=== PATIENT | female | born 1975 | race Caucasian/White ===

== ENCOUNTER 2024-09-11 12:08 | Emergency (ER) | payer OTHER, SELFPAY ==
[2024-09-11 12:12] VITALS: BP 150/96; PULSE 93; TEMP 37.1; BMI 55.8
[2024-09-11 12:18] VITALS: O2SAT 92
--- NOTE | 2024-09-11 12:18 | XR_ITS ---
[address] [address] Patient Name: SCARLETT CHAPMAN MRN: [id number] date: 1975 Sex: F Assigned Patient Location: ER Current Patient Location: ER Accession/Order Number: [id number] Exam Date: 09/11/2024 12:39 Report Date: 09/11/2024 12:40 At the request of: NINO VICTORIA MD Procedure: XR chest 1V Plain film chest Single view HISTORY: Shortness of breath COMPARISON: None FINDINGS: SUPPORT DEVICES: None POSTSURGICAL CHANGES: None HEART: Within normal limits PULMONARY MARYAN: Within normal limits MEDIASTINUM: Unremarkable LUNGS AND PLEURA: No acute lung process, pleural effusion or pneumothorax identified. BONY STRUCTURES: Intact ADDITIONAL FINDINGS None XR/XR chest 1V IMPRESSION: No acute process. Impression dictated by: Artur Orellana M.D. 09/11/2024 12:40 PM Dictation Location: [place] [address] Electronically authenticated by: [id number] Y Date: 09/11/2024 12:40
--- OUTSIDE RECORDS SUMMARY | 2024-09-11 12:18 | XMS_ITS | Encounter Summary ---
Author Organization [employer] Address [id number] [address] [place] [address] Care Team Providers Care Steel Pourer Helper Name Role Phone Samira Woods MD Primary Care Provider [phone] Encounter Details Date Type Department Care Team (Late st Contact Info) Description 03/13/2022 Orders Only [facility] [address] [place] [address] [place] [phone] Samira Woods MD [address], [place] [address] [place], [place] [phone] Type 2 diabetes mellitus with other specified complication, unspecified whether mcc insulin use ([facility]) (Primary Dx) Social History Tobacco Use Types Packs/Day Years Used Date Smoking Tobacco: Former Vaping/E-cigarettes Smokeless Tobacco: Never Alcohol Use Standard Drinks/Week Comments Yes 0 (1 standard drink = 0.6 oz pur e alcohol) occas Childcare Answer Date Recorded Childcare Unknown 04/14/2020 Employment Answer Date Recorded Employment Unknown 04/14/2020 Purpose - Life Answer Date Recorded Purpose and direction in life Unknown Comments No Sex and Gender Information Value Date Recorded Sex Assigned at Female 03/20/2022 11:35 AM EST Legal Sex Female 1:18 PM EST Gender Identity Female 03/20/2022 11:35 AM EST Sexual Orientation Straight 03/20/2022 11 :35 AM EST COVID-19 Exposure Response Date Recorded In the last month, have you been in contact with someone who was confirmed or suspected to have Coronavirus / COVID-19? No / Unsure 03/14/2022 8:44 AM EST documented as of this encounter Plan of Treatment Upcoming Encounters Date Type Department Care Team (Late st Contact Info) Description 01/03/2025 2:00 PM EDT Office Visit [facility] [address] [place] [phone] Ina High MD [address] [facility] [address] [place] [address] 06/20/2025 2:30 PM EDT Office Visit [facility] [address] [facility] [place] [phone] Samira Woods MD [address] [facility] [address] [place], [place] [phone] documented as of this encounter Visit Diagnoses Diagnosis Type 2 diabetes mellitus with other specified complication, 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
--- OUTSIDE RECORDS SUMMARY | 2024-09-11 12:18 | XMS_ITS | Clinical Summary ---
Author Organization [employer] tem Address [id number] [address] [place] [address] Care Team Providers Care Distance Education Coordinator Name Role Phone Samira Woods MD Primary Care Provider [phone] Allergies Active Allergy Reactions Criticality Noted Date Comments Prochlorperazine Other (See Comments) 5 Medications blood sugar diagnostic stripIndicatio ns:Depression, unspecified depression type,Type 2 diabetes mellitus with other specified complication, unspecified whether skilled nursing insulin use ([facility]) 1 strip by other route as needed for high blood sugar. Check glucose once per day on waking up before meal. Max 2 per day. 30 day supply. 50 strip 5 04/02/20 23 Active empagliflozin (JARDIANCE) 25 mg tablet tabletIndicati ons:Type 2 diabetes mellitus with other specified complication, unspecified whether skilled nursing insulin use ([facility]) Take 1 tablet (25 mg total) by mouth in the morning. 90 tablet 3 08/16/19 24 Active OLANZapine (ZyPREXA) 5 mg tabletIndicati ons:Depression , unspecified depression type,Grief Take 1 tablet (5 mg total) by mouth nightly. 90 tablet 2 10/19/19 24 Active ibuprofen (MOTRIN) 800 mg tablet Take 1 tablet (800 mg total) by mouth 3 (three) times a day. 21 tablet 11/02/19 24 Active Additional Information Patient not taking.Reported on 08/24/2024 cyanocobalamin (vitamin B-12) 1000 MCG tabletIndicati ons:B12 deficiency Take 1 tablet (1,000 mcg total) by mouth in the morning. 90 tablet 2 11/30/19 24 Active Additional Information Patient not taking.Reported on 08/24/2024 atorvastatin (LIPITOR) 40 mg tabletIndicati ons:ATIF (obstructive sleep apnea) Take 1 tablet (40 mg total) by mouth in the morning. 90 tablet 3 12/02/19 24 Active escitalopram (LEXAPRO) 20 mg tabletIndicati ons:Depression , unspecified depression type,Grief Take 1 tablet (20 mg total) by mouth in the morning. 90 tablet 2 02/15/20 24 Active oxybutynin (DITROPAN) 5 mg tablet Take 2 tablets (10 mg total) by mouth in the morning. 120 tablet 2 02/29/20 24 Active famotidine (PEPCID) 20 mg tablet Take 1 tablet (20 mg total) by mouth 2 (two) times a day as needed for heartburn. 60 tablet 2 03/22/20 24 Active spironolactone (ALDACTONE) 50 mg tabletIndicati ons:Hypertensi on, unspecified type Take 1 tablet (50 mg total) by mouth in the morning. 30 tablet 2 06/15/19 25 Active SUMAtriptan (IMITREX) 50 mg tabletIndicati ons:Other migraine without status migrainosus, not intractable Take 1 tablet (50 mg total) by mouth once as needed for migraine for up to 10 doses. May repeat in 2 hours if unresolved. Do not exceed 200 mg in 24 hours. 10 tablet 06/16/19 25 Active loratadine (CLARITIN) 10 mg tabletIndicati ons:Seasonal allergies Take 1 tablet (10 mg total) by mouth in the morning. 60 tablet 3 07/18/19 25 Active potassium chloride (MICRO-K) 8 mEq CR capsuleIndicat ions:Hypertens ion, unspecified type Take 1 capsule (8 mEq total) by mouth in the morning. 90 capsule 08/02/19 25 Active albuterol (PROVENTIL HFA;VENTOLIN HFA) 90 mcg/actuation inhalerIndicat ions:Upper respiratory tract infection, unspecified type Inhale 2 puffs every 6 (six) hours as needed for wheezing. 18 g 2 08/20/19 25 Active ergocalciferol (VITAMIN D2) 1,250 mcg (50,000 unit) capsuleIndicat ions:Vitamin D deficiency Take 1 capsule (50,000 Units total) by mouth once a week for 12 doses. 12 capsule 08/25/19 25 025 Active levothyroxine (SYNTHROID, LEVOTHROID) 175 MCG tabletIndicati ons:Hypothyroi dism, unspecified type take 1 tablet by mouth every morning 90 tablet 2 08/25/19 25 Active albuterol (PROVENTIL HFA;VENTOLIN HFA) 90 mcg/actuation inhalerIndicat ions:Upper respiratory tract infection, unspecified type INHALE 2 PUFFS BY MOUTH EVERY 6 HOURS NEEDED FOR WHEEZING 18 g 2 04/27/19 25 025 Discontinued(R eorder) levothyroxine (SYNTHROID, LEVOTHROID) 150 MCG tabletIndicati ons:Hypothyroi dism, unspecified type take 1 tablet by mouth every morning 90 tablet 06/16/19 25 025 Discontinued Active Problems Problem Noted Date Diagnosed Date Viral URI 07/25/2022 Seasonal allergic rhinitis due to pollen 023 Hypothyroid Encounters Date Type Department Care Team Description 08/24/2024 10:45 AM EDT Telemedicine [facility] [address] [place] [phone] Samira Woods MD Vitamin D deficiency (Primary Dx); Hypothyroidism, unspecified type 08/24/2024 Travel 08/19/2024 Refill [facility] [address] [place] [phone] Karon Chaudhari CNA Upper respiratory tract infection, unspecified type 08/04/2024 Telephone [facility] [address] [place] [phone] Carmen Tomlin CMA 07/31/2024 Refill [facility] [address] [place] [phone] Samira Woods MD Hypertension, unspecified type 07/18/2024 1:49 PM EDT - 07/18/2024 11:59 PM EDT Hospital Encounter [facility] [place] [facility] [address] [place] [address] Other hyperlipidemia Discharge Disposition: Home 07/18/2024 Travel 07/17/2024 Refill [facility] [address] [place] [address] [place] [address] Samira Woods MD Seasonal allergies 06/24/2024 Telephone [facility] [address] [place] [address] Farzana Hi, [facility] 06/21/2024 2:00 PM EDT Office Visit [facility] [address] [place] [phone] Ina High MD Obstructive sleep apnea (Primary Dx); Class 3 severe obesity due to excess calories with serious comorbidity and body mass index (BMI) of 50.0 to 59.9 in adult ([facility]) 06/21/2024 Travel 06/17/2024 Telephone [facility] [address] [place] [address] [place] [address] Bindu Barillas APRN-CNP 06/15/2024 2:30 PM EST Office Visit [facility] [address] [place] [phone] Samira Woods MD Other hyperlipidemia (Primary Dx); Hypothyroidism, unspecified type; Other migraine without status migrainosus, not intractable; Hypertension, unspecified type; Low back pain with sciatica, sciatica laterality unspecified, unspecified back pain laterality, unspecified chronicity; Encounter for screening mammogram for malignant neoplasm of breast 06/14/2024 Travel 06/14/2024 Refill [facility] [address] [place] [address] [place] [address] Bindu Barillas APRN-CNP Hypertension, unspecified type from Last 3 Months Immunizations Immunization Administration Dates Next Due Influenza, Im Trivalent Preservative 03/09/2018 Influenza, Injectable, quadrivalent (PF) 023 Tdap 12/06/2019 Family History Medical History Relation Name Comments Asthma Daughter Nadia Sports related Diabetes Maternal Grandfather Nova Camejo Hypertension Maternal Grandfather Nova Camejo Diabetes Maternal Grandmother Kaitlynn Camejo Hypertension Maternal Grandmother Kaitlynn Camejo Diabetes Mother Melissa Porcher Hypertension Mother Melissa Porcher Asthma Son 1 Bette Cough related Depression Son 1 Bette Asthma Son 2 Favian Sports related Asthma Son 3 Emmanuel Sports related Relation Name Status Comments Yasmeen Zuniga Maternal Grandfather Nova Camejo Maternal Grandmother Kaitlynn Camejo Mother Melissa Porcher Son 1 Bette Son 2 Favian Son 3 Emmanuel Social History Tobacco Use Types Packs/Day Years Used Date Smoking Tobacco: Former Vaping/E-cigarettes Smokeless Tobacco: Never Tobacco Cessation:Counseling Given: Not Answered Alcohol Use Standard Drinks/Week Comments Not Currently 0 (1 standard drink = 0.6 oz pur e alcohol) occas Social Connection and Isolat ion Panel [NHANES] Answer Date Recorded In a typical week, how many times do you talk on the phone with family, friends, or neighbors? More than three times a week 04/15/2022 How often do you get togethe r with friends or relatives? Three times a week 04/15/2022 How often do you attend chur or jehovah's witness services? 1 to 4 times per year 04/15/2022 Do you belong to any clubs o r organizations such as yazidi groups, unions, fraternal or athletic groups, or school groups? No 04/15/2022 How often do you attend meet ings of the clubs or organizations you belong to? Never 04/15/2022 Are you , , di vorced, , never , or living with a partner? 04/15/2022 AUDIT-C Answer Date Recorded Q1: How often do you have a drink containing alc ohol? Monthly or less 04/15/2022 Q2: How many drinks containi ng alcohol do you have on a typical day when you are drinking? 1 or 2 04/15/2022 Q3: How often do you have si x or more drinks on one occasion? Never 04/15/2022 Overall Financial Resource Strain (CARDIA) Answe r Date Recorded How hard is it for you to pa y for the very basics like food, housing, medical care, and heating? Not hard at all 06/14/2024 PHQ-2 Answer Date Recorded Total Score 0 06/15/2024 [facility] [place] [facility] Occup[facility] - Occupational Stress Questionnaire Answer Date Recorded Do you feel stress - tense, restless, nervous, or anxious, or unable to sleep at night because your mind is troubled all the time - these days? Not at all 04/15/2022 Exercise Vital Sign Answer Date Recorde d On average, how many days pe r week do you engage in moderate to strenuous exercise (like a brisk walk)? 0 days 04/15/2022 On average, how many minutes do you engage in exercise at this level? 0 min 04/15/2022 PRAPARE - Transportation Answer Date Re corded In the past 12 months, has l ack of transportation kept you from medical appointments or from getting medications? No 07/2024 In the past 12 months, has l ack of transportation kept you from meetings, work, or from getting things needed for daily living? No 06/14/2024 Housing Instability Answer Date Recorde d Are you worried or concerned that in the next two months you may not have stable housing that you own, rent or stay in as a part of a household? No 06/14/2024 Childcare Answer Date Recorded Do problems getting child ca re make it difficult for you to work or study? No 04/15/2022 Employment Answer Date Recorded Do you need help finding a [facility] career center and/or a training program? No 04/15/2022 Hunger Screening Answer Date Recorded Within the past 12 months we worried whether our food would run out before we got money to buy more. Never True 06/15/2024 Within the past 12 months th e food we bought just didn't last and we didn't have money to get more. Never True 06/15/2024 Purpose - Life Answer Date Recorded I have a purpose and direction in my life. Giles er Agree nor Disagree 04/15/2022 Education Answer Date Recorded What is the highest level of school you have completed or the highest degree you have received? 9th grade 04/15/2022 Comments No Sex and Gender Information Value Date Recorded Sex Assigned at Female 03/20/2022 11:35 AM EST Legal Sex Female 1:18 PM EST Gender Identity Female 03/20/2022 11:35 AM EST Sexual Orientation Straight 03/20/2022 11 :35 AM EST Last Filed Vital Signs Vital Sign Reading Time Taken Comments Blood Pressure 144/68 06/21/2024 2:28 PM EDT Pulse 100 06/21/2024 2:07 PM EDT Temperature 36.7 C (98 F) 06/15/2024 2:23 PM EST Respiratory Rate 18 02/29/2024 10:0 4 PM EST Oxygen Saturation 100% 06/21/2024 2:07 PM EDT Inhaled Oxygen Concentration - - Weight 140.1 kg (308 lb 14.4 oz) 06/21/2024 2:07 PM EDT Height 157.5 cm (5' 2.01 ) 06/21/2024 2:07 PM ED T Body Mass Index 56.48 06/21/2024 2:07 PM EDT Plan of Treatment Upcoming Encounters Date Type Department Care Team (Late st Contact Info) Description 01/03/2025 2:00 PM EDT Office Visit [facility] [address] [facility] [place] [address] Ina High MD [address] [facility] [address] [place] [address] 06/20/2025 2:30 PM EDT Office Visit [facility] [address] [place] [address] [place] [address] Samira Woods MD [address] [facility] [place] [address] Health Maintenance Due Date Last Done Comments COVID-19 Vaccine ( season) 2023, 08/17/2020 Adult BMI Follow Up Plan 01/10/2024 01/09/2023 Influenza Vaccine 12/12/2024 06/17/2022, 03/09/2018 Depression Screening 06/15/2025 06/15/2024 Adult BMI Screening 06/21/2025 06/21/2024 Tobacco Screening 06/21/2025 08/24/2024 DTaP,Tdap and Td Vaccines (2 - Td or Tdap) 12/05/2029 12/06/2019 Medical Devices Not on file Procedures Procedure Name Priority Date/Time Associated Diagnosis Comments T4, FREE Routine 07/18/2024 1:49 PM EDT LIPID PROFILE Routine 07/18/2024 1:49 PM EDT Other hyperlipidemia TSH WITH REFLEX Routine 07/18/2024 1:49 PM EDT Other hyperlipidemia HEMOGLOBIN A1C Routine 07/18/2024 1:49 PM EDT Other hyperlipidemia VITAMIN D 25 HYDROXY Routine 07/18/2024 1:49 PM EDT Other hyperlipidemia from Last 3 Months Results * (ABNORMAL) TSH with Reflex (07/18/2024 1:49 PM EDT) TSH 10.36(H) 0.49 - 4.67 uIU/mL 07/18/2024 6:35 PM EDT [facility] PLASMA 07/18/2024 1:49 PM EDT 07/18/2024 1:51 PM EDT us Samira Woods MD LAB BLOOD ORDERABLES Edited Re sult - Final [facility] [address], [address] [place] [address] * (ABNORMAL) Vitamin D 25 hydroxy (07/18/2024 1:49 PM EDT) Vit D, 25-Hydroxy 9.6(L) 30 - 100 ng/mL 07/18/2024 6:47 PM EDT [facility] Comment: Vitamin D status 25 [place] Vitamin D Deficiency <20 ng/mL Insufficiency 20-29 ng/mL Sufficiency 30-100 ng/mL Toxicity >100 ng/mL NOTE: A pediatric reference range has not been established by the red lead burner of this kit. The [place] [employer] recommends a Vitamin D level of = or >20ng/mL in infants and children. PLASMA 07/18/2024 1:49 PM EDT 07/18/2024 1:51 PM EDT Samira Woods MD LAB BLOOD ORDERABLES Final Res ult Performing Organization Address [facility] Co de Phone Number [facility] [address] [place] [address], [address] [address] * (ABNORMAL) T4, free (07/18/2024 1:49 PM EDT) T4, free 0.60(L) 0.61 - 1.60 ng/dL 07/18/2024 7:10 PM EDT [facility] Comment:CLIA ID [id number] 07/18/2024 1:49 PM EDT Samira Woods MD LAB BLOOD ORDERABLES Final Res ult Performing Organization Address [facility] Co de Phone Number [facility] [address] [place] [phone] * (ABNORMAL) Hemoglobin A1c (07/18/2024 1:49 PM EDT) Hemoglobin A1C 6.0(H) 4.4 - 5.6 % 07/18/2024 7:15 PM EDT [facility] Comment: NOTE ADA Guidelines Result HgbA1c Normal : less than 5.7 % Prediabetes : 5.7 % to 6.4 % Diabetes : > 6.4 % Use with caution in patients with abnormal hemoglobin variants as the half-life of red blood cells and in vivo glycation rates are affected. Average glucose 126 mg/dL 7:15 PM EDT [facility] PL[facility] 07/18/2024 1:49 PM EDT 07/18/2024 1:51 PM EDT us Samira Woods MD LAB BLOOD ORDERABLES Final Res ult [facility] [address] [facility] [place] [address] * (ABNORMAL) Lipid profile (07/18/2024 1:49 PM EDT) Cholesterol 147(L) 150 - 200 mg/dL 07/18/2024 6:28 PM EDT [facility] Triglycerides 182(H) 27 - 150 mg/dL 07/18/2024 6:28 PM EDT [facility] HDL Cholesterol 40 >39 mg/dL 6:28 PM EDT [facility] Comment: HDL <40 mg/dL - High Risk HDL > or = 40mg/dL- Desirable HDL >60 mg/dL - Negative Risk VLDL 36(H) 0 - 30 mg/dL 07/18/2024 6:28 PM EDT [facility] LDL (calc) 71 <130 mg/dL 07/18/2024 6:28 PM EDT [facility] Comment: LDL <100 mg/dL - Desirable LDL >160 mg/dL - High Risk Cholesterol:HDL Ratio 3.7 1.0 - 5.0 07/18/2024 6:28 PM EDT [facility] PLASMA 07/18/2024 1:49 PM EDT 07/18/2024 1:51 PM EDT Samira Woods MD LAB BLOOD ORDERABLES Final Res ult [facility] [address] [place] [address] from Last 3 Months [address] [place] [address] [facility] MEDICAID WORKER'S COMPENSATION [facility] MEDICAID WORKER'S COMPENSATION [employer] MEDICAID Care Teams Distance Education Coordinator Relationship Specialty Start Date End Date Samira Woods MD [address] [place] [address] PCP - General Internal Medicine 04/26/23
--- OUTSIDE RECORDS SUMMARY | 2024-09-11 12:18 | XMS_ITS | Encounter Summary ---
Author Organization [employer] s tem Address [id number] [address] [place] [address] Care Team Providers Care Boarding Machine Operator Name Role Phone Samira Woods MD Primary Care Provider [phone] Encounter Details Date Type Department Care Team (Late st Contact Info) Description 12/09/2022 Telephone [facility] [address] [place] [address] [place] [phone] Tori Bueno CMA Social History Tobacco Use Types Packs/Day Years [...] 04/15/2022 How often do you attend chur ch or yazidi services? 1 to 4 times per year 04/15/2022 Do you belong to any clubs o r organizations such as restorationist groups, unions, fraternal or athletic groups, or [...] care, and heating? Not hard at all 04/15/2022 PHQ-2 Answer Date Recorded Total Score 0 04/15/2022 [facility] Occupat ional Health - Occupational Stress [...] medical appointments or from getting medications? No 06/2022 In the past 12 months, has l ack of transportation kept you from meetings, work, or from getting things needed for daily living? No 04/15/2022 Childcare Answer Date Recorded Do problems getting child ca re make it difficult for you to work or study? No 04/15/2022 Employment Answer Date Recorded Do you need help finding a l ocal career center and/or a training program? No 04/15/2022 Purpose - Life Answer Date Recorded I have a purpose and direction in my life. Giles bautista Agree nor Disagree 04/15/2022 Education Answer Date [...] Orientation Straight 03/20/2022 11 :35 AM EST documented as of this encounter Miscellaneous Notes * Telephone Encounter - Tori Bueno CMA - 12/09/2022 2:11 PM EDT Patient called with complaints of bp being high after reading at another providers office today. She stated she didn't eat anything yet today but has consumed some soda. She was advised to relax for a little bit and take her bp and to call the office back. Patient was not symptomatic. Patient called office back and bp had gone down to 146/96 she stated was going to go home and relax, if she was feeling off she would call back or go to the ED. documented in this encounter Plan of Treatment Upcoming Encounters Date Type Department Care Team (Late st Contact Info) Description 01/03/2025 2:00 PM EDT Office Visit [facility] [address] [phone] Ina High MD [address] [facility] [address] [place] [address] 06/20/2025 2:30 PM EDT Office Visit [facility] [address] [place] [address] [place] [phone] Samira Woods MD [address] [facility] [address] [place], [place] [phone] documented as of this encounter Visit Diagnoses Not on filedocumented in this encounter Additional Health Concerns Assessment Noted Time PHQ-9 Depression Total Score: 0 04/15/19 23 11:02 AM EST documented as of this encounter Care Teams Boarding Machine Operator Relationship Specialty Start Date End Date Samira Woods MD [address] [place], [place] [phone] PCP - General Internal Medicine 04/26/23 documented as of this encounter
--- OUTSIDE RECORDS SUMMARY | 2024-09-11 12:18 | XMS_ITS | Encounter Summary ---
Author Organization [employer] Sys tem Address [facility] [id number] [address] [place] [address] Care Team Providers Care Consumer Electronics Merchandiser Name Role Phone Samira Woods MD Primary Care Provider [phone] Reason for Visit * Reason Comments Med Refill Encounter Details Date Type Department Care Team (Late st Contact Info) Description 04/09/2023 Refill [facility] [address] [place] [address] [place] [phone] Samira Woods MD [address], [facility] [address] Vitamin D deficiency Social History Tobacco Use Types Packs/Day Years [...] often do you attend chur ch or lutheran services? 1 to 4 times per year 04/15/2022 Do you belong to any clubs o r organizations such as sabianism groups, unions, fraternal or athletic groups, or [...] like food, housing, medical care, and heating? Somewhat hard 03/31/2023 PHQ-2 Answer Date Recorded Total Score 17 04/02/2023 [facility] of Occupat ional Health - Occupational Stress [...] medical appointments or from getting medications? No 03/13 In the past 12 months, has l ack of transportation kept you from meetings, work, or from getting things needed for daily living? No 03/31/2023 Housing Instability Answer Date Recorde d Are you worried or concerned that in the next two months you may not have stable housing that you own, rent or stay in as a part of a household? No 03/31/2023 Childcare Answer Date Recorded Do problems getting child ca re make it difficult for you to work or study? No 04/15/2022 Employment Answer Date Recorded Do you need help finding a [facility] career center and/or a training program? No 04/15/2022 Hunger Screening Answer Date Recorded Within the past 12 months we worried whether our food would run out before we got money to buy more. Never True 04/12/2023 Within the past 12 months th e food we bought just didn't last and we didn't have money to get more. Never True 04/12/2023 Purpose - Life Answer Date Recorded I have a purpose and direction in my life. Carmenith er Agree nor Disagree 04/15/2022 Education Answer [...] Office Visit [facility] [address] [facility] [place] [phone] Ina High MD [address] [facility] [address] [place] [address] 06/20/2025 2:30 PM EDT Office Visit [facility] [address] [place] [address] [place] [phone] Samira Woods MD [address] [facility] Felicita [place], [place] [phone] documented as of this encounter Visit Diagnoses Diagnosis Vitamin D deficiency documented in this encounter Additional Health Concerns Assessment Noted Time PHQ-9 Depression Total Score: 17 023 1:08 PM EST documented as of this encounter Care Teams Consumer Electronics Merchandiser Relationship Specialty Start Date End Date Samira Woods MD [address] [facility] Felicita [place], [place] [phone] PCP - General Internal Medicine 04/26/23 documented as of this encounter
--- OUTSIDE RECORDS SUMMARY | 2024-09-11 12:18 | XMS_ITS | Encounter Summary ---
Author Organization [employer] Address [facility] [place]-[id number] [address] [place] [address] Care Team Providers Care Final Inspector Motorcyles Name Role Phone Samira Woods MD Primary Care Provider [phone] Reason for Visit * Reason Onset Date Comments Med Refill 01/18/2023 Encounter Details Date Type Department Care Team (Late st Contact Info) Description 01/18/2023 Refill [facility] [address] [facility] [place] [address] [address] [place] [phone] Samira Woods MD [address], [facility] [place] [address] Seasonal allergies Social History Tobacco Use Types Packs/Day Years [...] often do you attend chur ch or episcopal services? 1 to 4 times per year 04/15/2022 Do you belong to any clubs o r organizations such as rastafari groups, unions, fraternal or athletic groups, or [...] Answer Date Recorded Total Score 0 04/15/2022 [facility] of Occupat ional Health - [...] Recorded Do you need help finding a Social IQ (Social Influence Quotient) ocal career center and/or a training program? [...] Office Visit [facility] [address] [facility] [place] [address] Ina High MD [address] [facility] [address] [place] [address] 06/20/2025 2:30 PM EDT Office Visit [facility] [address] [facility] [place] [phone] Samira Woods MD [address] [place], [place] [phone] documented as of this encounter Visit Diagnoses Diagnosis Seasonal allergies Allergic rhinitis, cause unspecified documented in this encounter Additional Health Concerns Assessment Noted Time PHQ-9 Depression Total Score: 0 04/15/19 23 11:02 AM EST documented as of this encounter Care Teams Final Inspector Motorcyles Relationship Specialty Start Date End Date Samira Woods MD [address] [facility] Felicita [facility] [address] PCP - General Internal Medicine 04/26/23 documented as of this encounter
--- OUTSIDE RECORDS SUMMARY | 2024-09-11 12:18 | XMS_ITS | Encounter Summary ---
Author Organization [employer] Address [facility] [place] [place]-[id number] [address] [place] [address] Care Team Providers Care Hydroelectric Plant Electrical Engineer Name Role Phone Samira Dozier MD Primary Care Provider Encounter Details Date Type Department Care Team (Late st Contact Info) Description 10/30/2022 Telephone [facility] [address] [place] [address] [place] [phone] Tori Bueno CMA Social History Tobacco Use [...] often do you attend chur ch or latter-day services? 1 to 4 times per year 04/15/2022 Do you belong to any clubs o r organizations such as alevism groups, unions, fraternal or athletic groups, or [...] Answer Date Recorded Total Score 0 04/15/2022 [facility] of Occupat ional Health - Occupational Stress [...] Telephone Encounter - Tori Bueno CMA - 10/30/2022 3:13 PM EDT Patient called into office seeking an alternative for her ear drops, she stated [facility] in [place] was out . * Telephone Encounter - Samira Dozier MD - 10/30/2022 3:13 PM EDT Four drops of olive oil into the affected ear would work well as well. Okay to use any other cooking well There is no other alternative in terms of medication. Thanks, SAMIRA DOZIER MD 10/30/22 * Telephone Encounter - Tori Bueno CMA - 10/30/2022 3:13 PM EDT Patient was called and notified, no answer but left on vm. documented in this encounter Plan of Treatment Upcoming Encounters Date Type Department Care Team (Late st Contact Info) Description 01/03/2025 2:00 PM EDT Office Visit [facility] [address] [facility] [place] [address] Ina High MD [address] [facility] [address] [place] [address] 06/20/2025 2:30 PM EDT Office Visit [facility] [address] [place] [address] [address] [facility] [place] [address] Samira Dozier MD 605 [place] [address] documented as of this encounter Visit Diagnoses Not on filedocumented in this encounter Additional Health Concerns Assessment Noted Time PHQ-9 Depression Total Score: 0 04/15/19 23 11:02 AM EST documented as of this encounter Care Teams Hydroelectric Plant Electrical Engineer Relationship Specialty Start Date End Date Samira Dozier MD [address], [facility] [place] [address] PCP - General Internal Medicine 04/26/23 documented as of this encounter
--- OUTSIDE RECORDS SUMMARY | 2024-09-11 12:18 | XMS_ITS | Encounter Summary ---
Author Organization [employer] Address [facility] [id number] [address] [place] [address] Care Team Providers Care Gas Pumping Station Supervisor Name Role Phone Samira Woods MD Primary Care Provider [phone] Reason for Visit * Reason Onset Date Comments Med Refill 12/21/2023 Encounter Details Date Type Department Care Team (Late st Contact Info) Description 12/21/2023 Refill [facility] [address] [facility] [facility] [place] [address] [place] [phone] Samira Woods MD [address], [facility] [place] [address] Pneumonia of right lower lobe due to infectious organism Social History Tobacco Use Types Packs/Day Years Used Date Smoking Tobacco: Former Vaping/E-cigarettes Smokeless Tobacco: Never Alcohol Use Standard Drinks/Week Comments Not Currently [...] often do you attend chur ch or christianity services? 1 to 4 times per year 04/15/2022 Do you belong to any clubs o r organizations such as christianity groups, unions, fraternal or athletic groups, or [...] Answer Date Recorded Total Score 17 04/02/2023 [facility] [place] of Occupat ional Health - Occupational Stress [...] Recorded Do you need help finding a [facility] career [facility] and/or a training program? No 04/15/2022 Hunger Screening Answer Date Recorded Within the past 12 months we worried whether our food would run out before we got money to buy more. Never True 11/02/2023 Within the past 12 months th e food we bought just didn't last and we didn't have money to get more. Never True 11/02/2023 Purpose - Life Answer Date Recorded I have a purpose and direction in my life. Neith er Agree nor Disagree 04/15/2022 Education Answer [...] encounter Miscellaneous Notes * Telephone Encounter - Irma Salas CMA - 12/21/2023 6:12 AM EDT Patient called into the office and stated that BRENDA has gone through the house and she just got the symptoms today. Runny nose chest a little tight was asking about getting a steroid and the tessalon pearls for her cough. documented in this encounter Plan of Treatment Upcoming Encounters Date Type Department Care Team (Late st Contact Info) Description 01/03/2025 2:00 PM EDT Office Visit [facility] [address] [facility] [place] [address] Ina High MD [address] [facility] [address] [place] [address] 06/20/2025 2:30 PM EDT Office Visit [facility] [address] [place] [address] [place] [address] Samira Woods MD [address] [facility] [address] documented as of this encounter Visit Diagnoses Diagnosis Pneumonia of right lower lobe due to infectious organism documented in this encounter Additional Health Concerns Assessment Noted Time PHQ-9 Depression Total Score: 17 023 1:08 PM EST documented as of this encounter Care Teams Gas Pumping Station Supervisor Relationship Specialty Start Date End Date aSmira Woods MD [address] [place] [address] PCP - General Internal Medicine 04/26/23 documented as of this encounter
--- OUTSIDE RECORDS SUMMARY | 2024-09-11 12:18 | XMS_ITS | Encounter Summary ---
Author Organization [employer] Address [facility] [place]-[id number] [address] [place] [address] Care Team Providers Care Paralegal Supervisor Name Role Phone Samira Dozier MD Primary Care Provider [phone] Encounter Details Date Type Department Care Team (Late st Contact Info) Description 04/02/2023 Telephone [facility] Family [facility] [address] [place] [address] [place] [address] Tori Bueno CMA Social History Tobacco Use [...] often do you attend chur ch or adventism services? 1 to 4 times per year 04/15/2022 Do you belong to any clubs o r organizations such as druze groups, unions, fraternal or athletic groups, or [...] Answer Date Recorded Total Score 17 04/02/2023 [facility] of Occupat ional Health - [...] Recorded Do you need help finding a [facility] career center and/or a training program? No 04/15/2022 Hunger Screening Answer Date Recorded Within the past 12 months we worried whether our food would run out before we got money to buy more. Never True 04/02/2023 Within the past 12 months th e food we bought just didn't last and we didn't have money to get more. Never True 04/02/2023 Purpose - Life Answer Date Recorded I have a purpose and direction in my life. Carmencolten lily Agree nor Disagree 04/15/2022 Education Answer Date [...] Telephone Encounter - Tori Bueno CMA - 04/02/2023 3:09 PM EST Pharmacy is looking for clarification for the number of test strips allowed to be used in a day. For insurance purposes they need a max amount daily. And also for escitalopram is it supposed to be written for 30 days 0r 60 days BID? If BID quaintly needs to be changed for quantity. * Telephone Encounter - Samira Dozier MD - 04/02/2023 3:09 PM EST Rx/order was updated and re-sent to pharmacy Please call and notify patient. Thanks, SAMIRA DOZIER MD 04/02/23 * Telephone Encounter - Tori Bueno CMA - 04/02/2023 3:09 PM EST Patient was called to be notified. No answer lvm. If she has questions to call. documented in this encounter Plan of Treatment Upcoming Encounters Date Type Department Care Team (Late st Contact Info) Description 01/03/2025 2:00 PM EDT Office Visit [facility] [address] [place] [phone] Ina High MD [address] [facility] [address] [place], [place] [address] 06/20/2025 2:30 PM EDT Office Visit [facility] [address] [place] [address] Samira Dozier MD [address] [place] [address] documented as of this encounter Visit Diagnoses Not on filedocumented in this encounter Additional Health Concerns Assessment Noted Time PHQ-9 Depression Total Score: 17 023 1:08 PM EST documented as of this encounter Care Teams Paralegal Supervisor Relationship Specialty Start Date End Date Samira Dozier MD [address] [facility] [place] [address] PCP - General Internal Medicine 04/26/23 documented as of this encounter
--- OUTSIDE RECORDS SUMMARY | 2024-09-11 12:18 | XMS_ITS | Encounter Summary ---
Author Organization [employer] Address [facility] [place]-[id number] [address] [place] [address] Care Team Providers Care Blow Pit Helper Name Role Phone Samira Dozier MD Primary Care Provider [phone] Encounter Details Date Type Department Care Team (Late st Contact Info) Description 04/10/2023 Telephone [facility] Family [facility] [address] [place] [address] [place] [address] Carmen Tomlin CMA Social History Tobacco Use Types Packs/Day [...] often do you attend chur ch or buddhist services? 1 to 4 times per year 04/15/2022 Do you belong to any clubs o r organizations such as jehovah's witness groups, unions, fraternal or athletic groups, or [...] Answer Date Recorded Total Score 17 04/02/2023 [facility] of Occupat ional Health [...] Recorded Do you need help finding a [facility] career center and/or a training program? [...] purpose and direction in my life. Giles lily Agree nor Disagree 04/15/2022 Education Answer [...] encounter Miscellaneous Notes * Telephone Encounter - Carmen Tomlin CMA - 04/10/2023 1:07 PM EST Patient called stating she has had a really bad migraine and thought PCP was going to send her something into pharmacy. I read her what was sent which did not include anything for her migraines so she would like to know if PCP would send something in. Please advise? * Telephone Encounter - Samira Dozier MD - 04/10/2023 1:07 PM EST Rx/order sent to pharmacy. Sumitriptan for migraine rescue medicine. Please call and notify patient. Thanks, SAMIRA DOZIER MD 04/14/23 * Telephone Encounter - Carmen Tomlin CMA - 04/10/2023 1:07 PM EST Tried to call patient but no answer so I left a voicemail. documented in this encounter Plan of Treatment Upcoming Encounters Date Type Department Care Team (Late st Contact Info) Description 01/03/2025 2:00 PM EDT Office Visit [facility] [address] [facility] [place] [address] Ina High MD [address] [facility] [address] [place] [address] 06/20/2025 2:30 PM EDT Office Visit [facility] [address] [place] [phone] Samira Dozier MD [address] [place] [address] documented as of this encounter Visit Diagnoses Not on filedocumented in this encounter Additional Health Concerns Assessment Noted Time PHQ-9 Depression Total Score: 17 023 1:08 PM EST documented as of this encounter Care Teams Blow Pit Helper Relationship Specialty Start Date End Date Samira Dozier MD [address] [place] [address] PCP - General Internal Medicine 04/26/23 documented as of this encounter
--- OUTSIDE RECORDS SUMMARY | 2024-09-11 12:18 | XMS_ITS | Encounter Summary ---
Author Organization [employer] Address [facility] [place]-[id number] [address] [place] [address] Care Team Providers Care Unit Support Representative Name Role Phone Samira Woods MD Primary Care Provider [phone] Reason for Visit * Reason Comments Med Refill Encounter Details Date Type Department Care Team (Late st Contact Info) Description 11/08/2022 Refill [facility] [address] [facility] [place] [address] [place] [phone] Samira Woods MD [address], [facility] [place] [address] Otitis externa of right ear, unspecified chronicity, unspecified type Social History Tobacco Use Types Packs/Day Years [...] often do you attend chur ch or synagogue services? 1 to 4 times per year 04/15/2022 Do you belong to any clubs o r organizations such as mormon groups, unions, fraternal or athletic groups, or [...] Answer Date Recorded Total Score 0 04/15/2022 [facility] of Occupat ional Health - [...] Office Visit [facility] [address] [facility] [place] [address] Ina High MD [address] [facility] [address] [place] [address] 06/20/2025 2:30 PM EDT Office Visit [facility] [address] [facility] [address] Samira Woods MD 605 [place], [place] [phone] documented as of this encounter Visit Diagnoses Diagnosis Otitis externa of right ear, unspecified chronicity, unspecified type documented in this encounter Additional Health Concerns Assessment Noted Time PHQ-9 Depression Total Score: 0 04/15/19 23 11:02 AM EST documented as of this encounter Care Teams Unit Support Representative Relationship Specialty Start Date End Date Samira Woods MD [address] [facility] Felicita [place], [place] [phone] PCP - General Internal Medicine 04/26/23 documented as of this encounter
--- OUTSIDE RECORDS SUMMARY | 2024-09-11 12:19 | XMS_ITS | Encounter Summary ---
Author Organization [employer] Address [facility] [id number] [address] [place] [address] Care Team Providers Care Band And Cuff Cutter Name Role Phone Samira Woods MD Primary Care Provider [phone] Encounter Details Date Type Department Care Team (Late st Contact Info) Description 06/23/[address] [facility] [address] [place] [address] Shruti Felder RMA Social History Tobacco Use Types Packs/Day Years [...] often do you attend chur ch or church services? 1 to 4 times per year 04/15/2022 Do you belong to any clubs o r organizations such as shinto groups, unions, fraternal or athletic groups, or [...] Answer Date Recorded Total Score 0 04/15/2022 [facility] [place] of Occupat ional Health - Occupational Stress [...] Recorded Do you need help finding a [employer] career center and/or a training program? No [...] have Coronavirus / COVID-19? No / Unsure 06/19/2022 6:53 PM EST documented as of this encounter Miscellaneous Notes * Telephone Encounter - SHERMAN De Jesus - 06/23/2022 10:43 AM EDT Left a message for the patient informing her that we need to discuss her 07/16/22 appointment with Hemal[place], asked to give the office a call back. documented in this encounter Plan of Treatment Upcoming Encounters Date Type Department Care Team (Late st Contact Info) Description 01/03/2025 2:00 PM EDT Office Visit [facility] [address] [facility] [place] [address] Ina High MD [address] [facility] [address] [place] [address] 06/20/2025 2:30 PM EDT Office Visit [facility] [address] [place] [phone] Samira Woods MD [address] [facility] Felicita [place], [place] [phone] documented as of this encounter Visit Diagnoses Not on filedocumented in this encounter Additional Health Concerns Assessment Noted Time PHQ-9 Depression Total Score: 0 04/15/19 11:02 AM EST documented as of this encounter Care Teams Band And Cuff Cutter Relationship Specialty Start Date End Date Samira Woods MD [address] [facility] Felicita [facility], [place] [address] PCP - General Internal Medicine 04/26/23 documented as of this encounter
--- OUTSIDE RECORDS SUMMARY | 2024-09-11 12:19 | XMS_ITS | Encounter Summary ---
Author Organization Torq[employer] s tem Address [facility] [id number] [address] [place] [address] Care Team Providers Care Silica Filter Operator Name Role Phone Samira Woods MD Primary Care Provider [phone] Encounter Details Date Type Department Care Team (Late st Contact Info) Description 04/23/2022 Telephone [facility] Family Medicine [address] [place] [address] [place] [phone] Tori Bueno CMA Social History Tobacco Use [...] often do you attend chur ch or christian services? 1 to 4 times per year 04/15/2022 Do you belong to any clubs o r organizations such as zoroastrianism groups, unions, fraternal or athletic groups, or [...] Answer Date Recorded Total Score 0 04/15/2022 [facility] of Occupat ional Health - Occupational Stress [...] have Coronavirus / COVID-19? No / Unsure 04/19/2022 4:32 PM EST documented as of this encounter Miscellaneous Notes * Telephone Encounter - Tori Bueno CMA - 04/23/2022 1:34 PM EST Sleep lab was called to verify if patient has made an appointment to be seen, no answer lvm. documented in this encounter Plan of Treatment Upcoming Encounters Date Type Department Care Team (Late st Contact Info) Description 01/03/2025 2:00 PM EDT Office Visit [facility] [address] [place] [address] Ina High MD [address] [facility] [address] [place] [address] 06/20/2025 2:30 PM EDT Office Visit [facility] [address] [facility] [place] [phone] Samira Woods MD [address] [facility] Felicita [place], [place] [id number] documented as of this encounter Visit Diagnoses Not on filedocumented in this encounter Additional Health Concerns Assessment Noted Time PHQ-9 Depression Total Score: 0 04/15/19 11:02 AM EST documented as of this encounter Care Teams Silica Filter Operator Relationship Specialty Start Date End Date Samira Woods MD [address] [facility] Felicita [place], [place] [phone] PCP - General Internal Medicine 04/26/23 documented as of this encounter
--- OUTSIDE RECORDS SUMMARY | 2024-09-11 12:19 | XMS_ITS | Encounter Summary ---
Author Organization Al[employer] s tem Address [facility] [place] [place]-[id number] [address] [place] [address] Care Team Providers Care Concrete Rod Buster Name Role Phone Samira Woods MD Primary Care Provider [phone] Encounter Details Date Type Department Care Team (Late st Contact Info) Description 08/27/2023 Telephone [facility] Family Medicine [address] [place] [address] [place] [phone] Carmen Tomlin CMA Social History Tobacco Use [...] often do you attend chur ch or temple services? 1 to 4 times per year 04/15/2022 Do you belong to any clubs o r organizations such as voodoo groups, unions, fraternal or athletic groups, or [...] Answer Date Recorded Total Score 17 04/02/2023 [facility] of Occupat ional Health - [...] Recorded Do you need help finding a [facility] career center and/or a training program? No 04/15/2022 Hunger Screening Answer Date Recorded Within the past 12 months we worried whether our food would run out before we got money to buy more. Never True 05/29/2023 Within the past 12 months th e food we bought just didn't last and we didn't have money to get more. Never True 05/29/2023 Purpose - Life Answer Date Recorded I [...] Telephone Encounter - Carmen Tomlin CMA - 08/27/2023 12:22 PM EDT Patient called requesting a refill of her albuterol inhaler but I told her I did not see it on her medication list but used to be. She also states she is having issues currently with a cough and would like to know if PCP would send her in a refill of tessalon perles. Please advise? * Telephone Encounter - Carmen Tomlin CMA - 08/27/2023 12:22 PM EDT Patient called back and got on the phone stating patient was having a real hard time breathing so was going to take her to the ER. documented in this encounter Plan of Treatment Upcoming Encounters Date Type Department Care Team (Late st Contact Info) Description 01/03/2025 2:00 PM EDT Office Visit [facility] [address] [facility] [place] [address] Ina High MD [address] [facility] [address] [place] [address] 06/20/2025 2:30 PM EDT Office Visit [facility] [address] [place] [address] [place] [address] Samira Woods MD [address] [place] [address] documented as of this encounter Visit Diagnoses Not on filedocumented in this encounter Additional Health Concerns Assessment Noted Time PHQ-9 Depression Total Score: 17 023 1:08 PM EST documented as of this encounter Care Teams Concrete Rod Buster Relationship Specialty Start Date End Date Samira Woods MD [address] [place] [address] PCP - General Internal Medicine 04/26/23 documented as of this encounter
--- OUTSIDE RECORDS SUMMARY | 2024-09-11 12:19 | XMS_ITS | Clinical Summary ---
Author Organization [facility] Healthcare Address [address] [place] [address] Care Team Providers Care Tool And Machine Maintainer Name Role Phone Unavailable Primary Care Provider Unavailabl e Social History Tobacco Use Types Packs/Day Years Used Date Smoking Tobacco: Never Assessed Comments Unknown Sex and Gender Information Value Date Recorded Sex Assigned at Not on file Legal Sex Female 7:10 PM EDT Gender Identity Not on file Sexual Orientation Not on file Last Filed Vital Signs Vital Sign Reading Time Taken Comments Blood Pressure 132/80 04/21/2017 12:00 PM EST Pulse - - Temperature - - Respiratory Rate - - Oxygen Saturation - - Inhaled Oxygen Concentration - - Weight 144 kg (318 lb) 08/04/2018 12:00 PM EDT Height 157.5 cm (5' 2 ) 08/04/2018 12:00 PM EDT Body Mass Index 58.16 08/04/2018 12:00 PM EDT Plan of Treatment Not on file
--- OUTSIDE RECORDS SUMMARY | 2024-09-11 12:19 | XMS_ITS | Encounter Summary ---
Author Organization Anonymous You s tem Address [facility] [place]-[id number] [address] [place] [address] Care Team Providers Care Footwear Sales Representative Name Role Phone Samira Woods MD Primary Care Provider [phone] Encounter Details Date Type Department Care Team (Late st Contact Info) Description 05/12/2022 Telephone [facility] Family Medicine [address] [place] [phone] Tori Bueno CMA Social History Tobacco Use [...] often do you attend chur ch or yarsani services? 1 to 4 times per year 04/15/2022 Do you belong to any clubs o r organizations such as pentecostalism groups, unions, fraternal or athletic groups, or [...] Answer Date Recorded Total Score 0 04/15/2022 [facility] of Occupat ional Health - Occupational [...] Telephone Encounter - Tori Bueno CMA - 05/12/2022 11:32 AM EST Patient called in to give report of her sleep study. The sleep center stated that she would be a good candidate for surgery for her sleep apnea since she doesn't like anything on her face. Sleep center advised her that she would need a referral from her PCP and was to call our office. Please advise documented in this encounter Plan of Treatment Upcoming Encounters Date Type Department Care Team (Late st Contact Info) Description 01/03/2025 2:00 PM EDT Office Visit [facility] [address] [facility] [place] [address] Ina High MD [address] [facility] [address] [place] [address] 06/20/2025 2:30 PM EDT Office Visit [facility] [address] [place] [address] [place] [phone] Samira Woods MD [address] [facility] Felicit[address] [place], [place] [phone] documented as of this encounter Visit Diagnoses Not on filedocumented in this encounter Additional Health Concerns Assessment Noted Time PHQ-9 Depression Total Score: 0 04/15/19 11:02 AM EST documented as of this encounter Care Teams Footwear Sales Representative Relationship Specialty Start Date End Date Samira Woods MD [address] [facility] [place] [place], [place] [phone] PCP - General Internal Medicine 04/26/23 documented as of this encounter
--- OUTSIDE RECORDS SUMMARY | 2024-09-11 12:19 | XMS_ITS | Encounter Summary ---
Author Organization [facility] [employer] Address [facility] [place]-[id number] [address] [place] [address] Care Team Providers Care Educational Audiologist Name Role Phone Samira Woods MD Primary Care Provider [phone] Reason for Visit * Reason Comments Med Refill Encounter Details Date Type Department Care Team (Late st Contact Info) Description 08/19/2022 Refill [facility] [address] [facility] [place] [address] [place] [phone] Samira Woods MD [address] [facility] [place] [address] Type 2 diabetes mellitus with other specified complication, unspecified whether termite helper insulin use ([facility]) Social History Tobacco Use Types Packs/Day Years [...] often do you attend chur ch or sabianism services? 1 to 4 times per year 04/15/2022 Do you belong to any clubs o r organizations such as adventism groups, unions, fraternal or athletic groups, or [...] Answer Date Recorded Total Score 0 04/15/2022 [facility] of Occupat ional Health - Occupational [...] Office Visit [facility] [address] [facility] [place] [address] Ina High MD [address] [facility] [address] [place] [address] 06/20/2025 2:30 PM EDT Office Visit [facility] [address] [place] [phone] Samira Woods MD [address] [place], [place] [phone] documented as of this encounter Visit Diagnoses Diagnosis Type 2 diabetes mellitus with other specified complication, unspecified whether termite helper insulin use ([facility]) documented in this encounter Additional Health Concerns Assessment Noted Time PHQ-9 Depression Total Score: 0 04/15/19 23 11:02 AM EST documented as of this encounter Care Teams Educational Audiologist Relationship Specialty Start Date End Date Samira Woods MD [address] [place], [place] [phone] PCP - General Internal Medicine 04/26/23 documented as of this encounter
--- OUTSIDE RECORDS SUMMARY | 2024-09-11 12:19 | XMS_ITS | Encounter Summary ---
Author Organization K[employer] s tem Address [facility] [place]-[id number] [address] [place] [address] Care Team Providers Care Demo Specialist Name Role Phone Samira Woods MD Primary Care Provider [phone] Reason for Referral * Misc (Routine) - Closed Specialty Diagnoses / Procedures Referred By Contac t Referred To Contact Diagnoses ATIF (obstructive sleep apnea) Hypercarbia Procedures Split Night Sleep Study Samira Woods MD [address] [facility] [place] [address] Phone: tel: fax: Referral ID Status Reason Start Date Expiration Date Visits Re quested Visits Authorized [id number] Closed 04/15/2022 04/15/2023 1 1 Encounter Details Date Type Department Care Team (Late st Contact Info) Description 04/15/2022 Orders Only [facility] [address] [place] [address] [place] [phone] Samira Woods MD [address] [place] [address], [facility] [place] [address] ATIF (obstructive sleep apnea) (Primary Dx); Hypercarbia Social History Tobacco Use Types Packs/Day Years [...] Answer Date Recorded Total Score 0 04/15/2022 [facility] of Occupat ional Health - Occupational [...] Recorded Do you need help finding a [facility] career center and/or a training program? [...] have Coronavirus / COVID-19? No / Unsure 04/17/2022 10:06 AM EST documented as of this encounter Functional Status * Audit-C Score Answer Date of Assessment Author 1 04/15/2022 11:02 AM EST Mychart, Generic * Within the last year, have you been humiliated or emotionally abused in other ways by your partner or ex-partner? Answer Date of Assessment Author No 04/15/2022 11:02 AM EST Mychart, Generic * Within the last year, have you been afraid of your partner or ex-partner? Answer Date of Assessment Author No 04/15/2022 11:02 AM EST Mychart, Generic * Within the last year, have you been raped or forced to have any kind of sexual activity by your partner or ex-partner? Answer Date of Assessment Author No 04/15/2022 11:02 AM EST Mychart, Generic * Within the last year, have you been kicked, hit, slapped, or otherwise physically hurt by your partner or ex-partner? Answer Date of Assessment Author No 04/15/2022 11:02 AM EST Mychart, Generic * Q1: How often do you have a drink containing alcohol? Answer Date of Assessment Author Monthly or less 04/15/2022 11:02 AM EST Mychart, Generic * Q2: How many drinks containing alcohol do you have on a typical day when you are drinking? Answer Date of Assessment Author 1 or 2 04/15/2022 11:02 AM EST Mychart, Generic * Q3: How often do you have six or more drinks on one occasion? Answer Date of Assessment Author Never 04/15/2022 11:02 AM EST Mychart, Generic documented as of this encounter Plan of Treatment Upcoming Encounters Date Type Department Care Team (Late st Contact Info) Description 01/03/2025 2:00 PM EDT Office Visit [facility] [address] [facility] [place] [phone] Ina High MD [address] [facility] [address] [place] [address] 06/20/2025 2:30 PM EDT Office Visit [facility] [address] [place] [phone] Samira Woods MD [address], [place] [address] documented as of this encounter Results * Split Night Sleep Study (04/16/2022 8:08 PM EST) 04/16/2022 8:08 PM EST Narrative [facility] - 04/26/2022 2:16 PM EST INTERPRETED INTERPRETED us Samira Woods MD SLEEP CENTER ORDERABLES Final Result [facility] documented in this encounter Visit Diagnoses Diagnosis ATIF (obstructive sleep apnea)- Primary Obstructive sleep apnea (adult) (pediatric) Hypercarbia Other dyspnea and respiratory abnormality ATIF (obstructive sleep apnea) Obstructive sleep apnea (adult) (pediatric) Hypercarbia Other dyspnea and respiratory abnormality documented in this encounter Additional Health Concerns Assessment Noted Time PHQ-9 Depression Total Score: 0 04/15/19 23 11:02 AM EST documented as of this encounter Care Teams Demo Specialist Relationship Specialty Start Date End Date Samira Woods MD [address] [facility] [place] [address] PCP - General Internal Medicine 04/26/23 documented as of this encounter
--- OUTSIDE RECORDS SUMMARY | 2024-09-11 12:19 | XMS_ITS | Encounter Summary ---
Author Organization [employer] s tem Address [facility] [place]-[id number] [address] [place] [address] Care Team Providers Care Pest Controller Assistant Name Role Phone Samira Woods MD Primary Care Provider [phone] Encounter Details Date Type Department Care Team (Late st Contact Info) Description 04/17/2022 Telephone [facility] Family Medicine [address] [place] [address] [place] [phone] Tori Bueno CMA Social History Tobacco Use [...] often do you attend chur ch or religion services? 1 to 4 times per year 04/15/2022 Do you belong to any clubs o r organizations such as scientology groups, unions, fraternal or athletic groups, or [...] Answer Date Recorded Total Score 0 04/15/2022 [facility] of Occupat ional Health - Occupational Stress [...] Telephone Encounter - Tori Bueno CMA - 04/17/2022 3:26 PM EST Sleep lab was called to confirm if they had received and scheduled patient for sleep study yet. No answer LVM. documented in this encounter Plan of Treatment Upcoming Encounters Date Type Department Care Team (Late st Contact Info) Description 01/03/2025 2:00 PM EDT Office Visit [facility] [address] [facility] [place] [address] Ina High MD [address] [facility] [address] [place] [address] 06/20/2025 2:30 PM EDT Office Visit [facility] [address] [facility] [place] [phone] Samira Woods MD [address] [facility] [address] [place], [place] [phone] documented as of this encounter Visit Diagnoses Not on filedocumented in this encounter Additional Health Concerns Assessment Noted Time PHQ-9 Depression Total Score: 0 04/15/19 23 11:02 AM EST documented as of this encounter Care Teams Pest Controller Assistant Relationship Specialty Start Date End Date Samira Woods MD [address] [facility] [address] [facility], [place] [phone] PCP - General Internal Medicine 04/26/23 documented as of this encounter
--- OUTSIDE RECORDS SUMMARY | 2024-09-11 12:19 | XMS_ITS | Encounter Summary ---
Author Organization [employer] s tem Address [facility] [place]-[id number] [address] [place] [address] Care Team Providers Care Room Service Supervisor Name Role Phone Samira Dozier MD Primary Care Provider Encounter Details Date Type Department Care Team (Late st Contact Info) Description 05/26/2022 Telephone [facility] Family Medicine [address] [place] [phone] Tori Bueno CMA Social History Tobacco Use [...] often do you attend chur ch or congregation services? 1 to 4 times per year 04/15/2022 Do you belong to any clubs o r organizations such as uatsdin groups, unions, fraternal or athletic groups, or [...] Answer Date Recorded Total Score 0 04/15/2022 [facility] of Occupat ional Health - Occupational Stress [...] Telephone Encounter - Tori Bueno CMA - 05/26/2022 11:30 AM EST Patient called into the office about her sleep study results. She stated that she talked the surgery over with her . They had both agreed for the patient to have the surgery done. She is requesting a referral. * Telephone Encounter - Samira Dozier MD - 05/26/2022 11:30 AM EST ENT Referral placed in late 05/15/2022 Patient status post sleep study, has diagnosis of ATIF, per Pulmonary Medicine patient would benefitfrom referral for surgic evaluation of ATIF. Please provide sleep study, pulmonary Medicine and all records relating to ATIF diagnosis and CPAP settings to ENT specialist. Thanks, SAMIRA DOZIER MD 05/27/22 documented in this encounter Plan of Treatment Upcoming Encounters Date Type Department Care Team (Late st Contact Info) Description 01/03/2025 2:00 PM EDT Office Visit [facility] [address] [facility] [place] [phone] Ina High MD [address] [facility] [address] [place] [address] 06/20/2025 2:30 PM EDT Office Visit [facility] [address] [facility] [address] [facility] [place] [place] [phone] Samira Dozier MD [address] [place] [address] documented as of this encounter Visit Diagnoses Not on filedocumented in this encounter Additional Health Concerns Assessment Noted Time PHQ-9 Depression Total Score: 0 04/15/19 11:02 AM EST documented as of this encounter Care Teams Room Service Supervisor Relationship Specialty Start Date End Date Samira Dozier MD [address] [place] [address] PCP - General Internal Medicine 04/26/23 documented as of this encounter
--- OUTSIDE RECORDS SUMMARY | 2024-09-11 12:19 | XMS_ITS | Encounter Summary ---
Author Organization [employer] Address [facility] [place]-[id number] [address] [place] [address] Care Team Providers Care Account Maintenance Representative Name Role Phone Samira Woods MD Primary Care Provider [phone] Encounter Details Date Type Department Care Team (Late st Contact Info) Description 05/27/2022 Orders Only [facility] [address] [place] [address] [place] [phone] Samira Woods MD [address] [facility] [place], [place] [phone] Social History Tobacco Use Types Packs/Day Years [...] often do you attend chur ch or yazdanism services? 1 to 4 times per year 04/15/2022 Do you belong to any clubs o r organizations such as congregation groups, unions, fraternal or athletic groups, or [...] Answer Date Recorded Total Score 0 04/15/2022 [facility] of Occupat ional Health - Occupational [...] Do you need help finding a l al career center and/or a training program? [...] Office Visit [facility] [address] [facility] [place] [phone] Ina High MD [address] [facility] [address] [place] [address] 06/20/2025 2:30 PM EDT Office Visit [facility] [address] [facility] [place] [phone] Samira Woods MD [address] [place], [place] [phone] documented as of this encounter Visit Diagnoses Not on filedocumented in this encounter Additional Health Concerns Assessment Noted Time PHQ-9 Depression Total Score: 0 04/15/19 23 11:02 AM EST documented as of this encounter Care Teams Account Maintenance Representative Relationship Specialty Start Date End Date Samira Woods MD [address] [facility] [place], [place] [phone] PCP - General Internal Medicine 04/26/23 documented as of this encounter
--- OUTSIDE RECORDS SUMMARY | 2024-09-11 12:19 | XMS_ITS | Encounter Summary ---
Author Organization [employer] Address [id number] [address] [place] [address] Care Team Providers Care Automatic Lathe Setter Name Role Phone Samira Woods MD Primary Care Provider [phone] Encounter Details Date Type Department Care Team (Late st Contact Info) Description 04/28/2023 Orders Only [facility] [address] [place] [address] [id number] Samira Woods MD [address], [facility] [place], [place] [id number] Hypertension, unspecified type (Primary Dx) Social History Tobacco Use Types [...] any clubs o r organizations such as mu-ism groups, unions, fraternal or athletic groups, or [...] Answer Date Recorded Total Score 17 04/02/2023 [facility] - Occupational Stress [...] Recorded Do you need help finding a [employer] and/or a training program? No 04/15/2022 Hunger Screening Answer Date Recorded Within the past 12 months we worried whether our food would run out before we got money to buy more. Never True 04/26/2023 Within the past 12 months th e food we bought just didn't last and we didn't have money to get more. Never True 04/26/2023 Purpose - Life Answer Date Recorded I have a purpose and direction in my life. Carmencolten er Agree nor Disagree 04/15/2022 Education Answer [...] Office Visit [facility] [address] [place] [id number] Ina High MD [address] [facility] [address] [place] [address] 06/20/2025 2:30 PM EDT Office Visit [facility] [address] [place] [phone] Samira Woods MD [address] [facility] [address] [place], [place] [id number] documented as of this encounter Visit Diagnoses Diagnosis Hypertension, unspecified type- Primary documented in this encounter Additional Health Concerns Assessment Noted Time PHQ-9 Depression Total Score: 17 023 1:08 PM EST documented as of this encounter Care Teams Automatic Lathe Setter Relationship Specialty Start Date End Date Samira Woods MD [address] [facility] [address] [address] [place], [place] [id number] PCP - General Internal Medicine 04/26/23 documented as of this encounter
--- NOTE | 2024-09-11 12:20 | ED_ITS ---
HPI - SOB/Dyspnea General Chief Complaint: Shortness of Breath/Dyspnea Stated Complaint: SHORTNESS OF BREATH Time Seen by Provider: 09/11/24 12:18 Source: patient Mode of arrival: walk-in History of Present Illness HPI Narrative: Patient have history of asthma she usually uses inhaler only when she is sick and she mentioned that the change in weather usually cause her to have asthma exacerbation, she denies any history of smoking cigarettes she has an inhaler at home , she mentioned that 2 days ago she started having some productive cough and today she started having shortness of breath No nausea no vomiting no other complaint no chest pain Related Data Previous Rx's ?Medication ?Instructions ?Recorded guaifenesin 1,200 mg tablet, 1,200 mg PO Q12H PRN coug h #10 tabs 09/11/24 extended release 12 hr (Mucinex) prednisone 50 mg tablet 50 mg PO DAILY 5 days #5 tab s 09/11/24 Allergies Allergy/AdvReac Type Severity Reaction Status Date / Time prochlorperazine (From AdvReac Severe Rash Verified 09/11/24 12:17 Compazine) Review of Systems ROS Status of ROS 10 or more systems reviewed and unremark able except as noted in history and below PFSH PFSH Social History Little interest or pleasure in doing things: not at all Feeling down, depressed, or hopeless: not at all Exam Narrative Exam Narrative: Nurses notes and vital signs reviewed and patient is not hypoxic. General: Well-appearing and in no apparent distress. Skin: Warm, dry, no pallor noted. No rash. Head: Normocephalic, atraumatic. Neck: Supple, non-tender. Eye: Pupils are equal, round and EOMI. No scleral icterus. Ears, Nose, Mouth, and Throat: TM are clear, no nasal mucosal hypertrophy. Oral mucosa is moist, no posterior oropharynx erythema, uvula is mid-line Cardiovascular: Regular Rate and Rhythm without murmur, gallop or rub. Respiratory: Bilateral expiratory lung wheezes in both lung whitaker Back: No midline thoracic or lumbar vertebral tenderness. No CVA tenderness Musculoskeletal: normal ROM, no calf or popliteal tenderness, no lower extremity edema/swelling GI: Abdomen is soft, non-distended. Normal bowel sounds. No masses appreciated. No tenderness to palpation. No rebound, guarding, or rigidity noted. Neurological: A&O x4. No cranial nerve dysfunction observed. No truncal ataxia. Moves all extremities. Sensation intact. Psychiatric: Cooperative and interactive. Normal mood and affect. Constitutional Vital Signs, click to edit/add: Last Vital Signs Temp 98.8 F 09/11/24 12:12 Pulse 93 H 09/11/24 12:12 Resp 22 H 09/11/24 12:12 BP 150/96 H 09/11/24 12:12 Pulse Ox 98 09/11/24 12:29 O2 Del Method Nasal Cannula 09/11/24 12:29 Course Vital Signs Vital signs: Vital Signs Temperature 98.8 F 09/11/24 12:12 Pulse Rate 93 H 09/11/24 12:12 Respiratory Rate 22 H 09/11/24 12:12 Blood Pressure 150/96 H 09/11/24 12:12 Temperature 98.8 F 09/11/24 12:12 Pulse Rate 93 H 09/11/24 12:12 Respiratory Rate 22 H 09/11/24 12:12 Blood Pressure 150/96 H 09/11/24 12:12 Pulse Oximetry 98 09/11/24 12:29 Oxygen Delivery Method Nasal Cannula 09/11/24 12:29 MDM - SOB/Dyspnea MDM Narrative Medical decision making narrative: The patient chest x-ray showed no acute pathology IV access established with the Solu-Medrol as well as breathing treatment after which the patient was feeling much better CBC and chemistry showed no acute pathology Initially the patient was placed on 2 L nasal cannula and she was saturating 98% after the patient was feeling much better the nasal cannula was removed and she actually was able to move in the room with no difficulty and a pulse ox stayed at 93% The patient was feeling much better she was discharged home with instruction that she is to come back in case of any new symptoms including fever or increasing in shortness of breath Provided the prednisone prescription as well as Mucinex The patient is to follow up with primary care physician in next 2-3 days or to return to the emergency department should any of the signs or symptoms worsen or new symptoms develop. The patient agrees with the following Diagnosis and Treatment plan and the patient will be discharged home. Lab Data Labs: Lab Results 09/11/24 Range/Units 12:33 WBC 9.0 (4.0-11.0) 10^3/uL RBC 4.72 (4.20-5.40) 10^6/uL Hgb 13.8 (12.0-16.0) g/dL Hct 41.5 (36.0-48.0) % MCV 87.9 (81.0-99.0) fL MCH 29.2 (26.7-34.0) pg MCHC 33.3 (29.9-35.2) g/dL RDW 11.9 (11.0-15.0) % Plt Count 274 (150-450) 10^3/uL MPV 8.5 L (9.5-13.5) fL Neut % (Auto) 61.2 (43.0-75.0) % Lymph % (Auto) 25.4 (20.5-60.0) % [place] % (Auto) 6.8 (1.7-12.0) % Eos % (Auto) 6.1 (0.9-7.0) % Baso % (Auto) 0.3 (0.2-2.0) % Neut # (Auto) 5.5 (1.4-6.5) 10^3/uL Lymph # (Auto) 2.3 (1.2-3.8) 10^3/uL [place] # (Auto) 0.6 (0.3-0.8) 10^3/uL Eos # (Auto) 0.6 (0.0-0.7) 10^3/uL Baso # (Auto) 0.0 (0.0-0.1) 10^3/uL Abs Immat Gran (auto) 0.02 (0.00-0.03) 10^3/uL Imm/Tot Granulo (auto) 0.2 (0.0-0.5) % Sodium 143 (136-145) mmol/L Potassium 4.1 (3.5-5.1) mmol/L Chloride 105 (98-107) mmol/L Carbon Dioxide 29.8 (21.0-32.0) mmol/L Anion Gap 12.3 BUN 8.0 (7.0-18.0) mg/dL Creatinine 0.50 L (0.55-1.02) mg/dL Est GFR ( Amer) >60 (>=60 mL/min/1.73m^2) Est GFR (Non-Af Amer) >60 (>=60 mL/min/1.73m^2) BUN/Creatinine Ratio 16.0 Glucose 137 H (74-106) mg/dL Calcium 9.2 (8.5-10.1) mg/dL Total Bilirubin 0.5 (0.2-1.0) mg/dL AST 23 (15-37) U/L ALT 39 (14-59) U/L Alkaline Phosphatase 160 H (46-116) U/L Total Protein 7.5 (6.4-8.2) g/dL Albumin 3.2 L (3.4-5.0) g/dL Globulin 4.3 g/dL Albumin/Globulin Ratio 0.7 Serum HCG, Qual Negative (NEGATIVE) Discharge Plan Discharge Chief Complaint: Shortness of Breath/Dyspnea Clinical Impression: Asthma exacerbation, Bronchitis Patient Disposition: Home, Self-Care Time of Disposition Decision: 13:39 Condition: Good Prescriptions / Home Meds: New prednisone 50 mg tablet 50 mg PO DAILY 5 Days Qty: 5 0RF guaifenesin [Mucinex] 1,200 mg tablet extended release 12hr 1,200 mg PO Q12H PRN (Reason: cough) Qty: 10 0RF Print Language: [place] Instructions: Asthma (DC), Acute Bronchitis (ED) Referrals: Physician,Non-Staff, MD [Primary Care Provider] - 1 week Discharge Date/Time: 09/11/24 13:49
[2024-09-11] MEDS: IPRATROPIUM/ALBUTEROL SULFATE 3 ML AMPUL.NEB IH (12:28)
[2024-09-11 12:29] VITALS: O2SAT 98
[2024-09-11] MEDS: METHYLPREDNISOLONE SOD SUCC PF 125 MG/2 ML VIAL IVP (12:35)
[2024-09-11 12:53] LABS: Basophils Percent Auto 0.3 % (0.2-2.0); Eosinophils Absolute Auto 0.6 10^3/uL (0.0-0.7); Eosinophils Percent Auto 6.1 % (0.9-7.0); Hematocrit 41.5 % (36.0-48.0); Hemoglobin 13.8 g/dL (12.0-16.0); Immature Granulocytes Abs Auto 0.02 10^3/uL (0.00-0.03); Immature Granulocytes Pct Auto 0.2 % (0.0-0.5); Lymphocytes Absolute Auto 2.3 10^3/uL (1.2-3.8); Lymphocytes Percent Auto 25.4 % (20.5-60.0); Mean Corpuscular HGB Conc 33.3 g/dL (29.9-35.2); Mean Corpuscular Hemoglobin 29.2 pg (26.7-34.0); Mean Corpuscular Volume 87.9 fL (81.0-99.0); Mean Platelet Volume 8.5 fL (9.5-13.5); Monocytes Absolute Auto 0.6 10^3/uL (0.3-0.8); Monocytes Percent Auto 6.8 % (1.7-12.0); Neutrophils Absolute Auto 5.5 10^3/uL (1.4-6.5); Neutrophils Percent Auto 61.2 % (43.0-75.0); Platelet Count 274 10^3/uL (150-450); Red Blood Count 4.72 10^6/uL (4.20-5.40); Red Cell Distribution Width 11.9 % (11.0-15.0)
[2024-09-11 13:04] LABS: HCG Qualitative NEGATIVE (NEGATIVE); Internal Control Within Normal Limits
[2024-09-11 13:08] LABS: Alanine Aminotransferase 39 U/L (14-59); Albumin Globulin Ratio 0.7; Albumin Level 3.2 g/dL (3.4-5.0); Alkaline Phosphatase 160 U/L (46-116); Anion Gap 12.3; Aspartate Amino Transferase 23 U/L (15-37); Bilirubin Total 0.5 mg/dL (0.2-1.0); Calcium 9.2 mg/dL (8.5-10.1); Carbon Dioxide 29.8 mmol/L (21.0-32.0); Chloride 105 mmol/L (98-107); Estimated GFR (African America >60 (>=60 mL/min/1.73m^2); Estimated GFR (Non-African Ame >60 (>=60 mL/min/1.73m^2); Globulin 4.3 g/dL; Glucose 137 mg/dL (74-106); Potassium 4.1 mmol/L (3.5-5.1); Sodium 143 mmol/L (136-145); Total Protein 7.5 g/dL (6.4-8.2)
== END 2024-09-11 13:49 | disposition home or self-care (01) ==
PROVIDERS: Emergency Provider Emergency Medicine
DX: J45.901 Unspecified asthma with (acute) exacerbation (principal)
CPT/HCPCS: 36415; 71045; 80053; 84703; 85025; 94640; 96374; 99285; J2919